=== PATIENT | male | born 1990 | race Hispanic/Latino ===

== ENCOUNTER 2023-10-09 07:21 | Emergency (ER) | payer OTHER ==
[~2023-10-09] VITALS: Ht 170.2 cm; Wt 70.3 kg
[2023-10-09 07:22] VITALS: BP 128/73; PULSE 70; RESP 18
[2023-10-09] MEDS ORDERED: ERYTHROMYCIN BASE 0.5% OPHTH OINT 1 GM TUBE OD SCH (08:00)
== END 2023-10-09 08:14 | disposition home or self-care (01) ==
LOC: EDH 07:21
DX: H10.89 Other conjunctivitis (principal)